=== PATIENT | female | born 1990 | race Caucasian/White ===

== ENCOUNTER 2025-05-18 12:49 | Outpatient (CLI) | payer BC, SELFPAY ==
--- NOTE | 2025-05-18 13:00 | CRLHL7_ITS ---
For Patients: As a result of the Century Cures Act, medical imaging exams and procedure reports are released immediately into your electronic medical record. You may view this report before your referring provider. If you have questions, please contact your health care provider. OBSTETRICAL ULTRASOUND TRANSVAGINAL CLINICAL INDICATION: Dating and viability. LMP: 03/20/2025 LAWRENCE by LMP: 12/25/2025 Gestational age: 8 weeks 3 days PREVIOUS ULTRASOUND: No TECHNIQUE: Real-time cabrera-scale imaging of the fetus was performed transvaginal. Transvaginal imaging was performed for better visualization of the endometrium and ovaries. FINDINGS: CRL: 0.3 cm, 5 weeks 6 days; LAWRENCE 01/12/2026 heart rate: Not visualized Gestational sac: 2.3 cm Yolk sac: 4.1 mm, appears within normal limits Right ovary: Within normal limits; 2.9 x 1.8 x 2.0 cm, CL Left ovary: Not visualized IMPRESSION: 1. Intrauterine gestational sac contains a pole which measures 2.9 mm, 5 weeks 6 days. 2. No heart tones. Follow-up in 11-14 days recommended. JOHNNY CASTILLO M.D. Diagnostic Radiologist [email or web address] Transcribed: 3:[address]/Dictated by: Johnny Castillo MD @ 05/18/2025 2:22:00 PM (Electronically Signed)
== END 2025-05-18 12:50 | disposition home or self-care (01) ==
LOC: US 12:51
PROVIDERS: Visit Provider Advanced Practice Midwife
DX: O35.BXX0 Maternal care for other (suspected) fetal abnormality and damage, fetal cardiac anomalies, not applicable or unspecified (principal); Z3A.01 Less than 8 weeks gestation of pregnancy
CPT/HCPCS: 76817

== ENCOUNTER 2025-05-28 12:15 | Outpatient (CLI) | payer BC, SELFPAY ==
--- NOTE | 2025-05-28 12:15 | CRLHL7_ITS ---
For Patients: As a result of the Century Cures Act, medical imaging exams and procedure reports are released immediately into your electronic medical record. You may view this report before your referring provider. If you have questions, please contact your health care provider. INDICATION: Viability follow-up. TECHNIQUE: Ultrasound OB pelvis transvaginal for better assessment or to better visualize the endometrium. COMPARISON: 05/18/2025. FINDINGS: Intrauterine pole with crown-rump length of 3 mm corresponding to 6 weeks 0 days, not significantly changed. The yolk sac has decreased in size and become more echogenic. No heart tones demonstrated. Subchorionic hemorrhage is now present cephalad to the gestational sac measuring up to 3 cm. Right ovary is 3.5 x 2.3 x 2.4 cm and is within normal limits. Normal-appearing color flow in the right ovary. Right adnexal region unremarkable. Left ovary is not discretely identified. Left adnexal region is unremarkable. No pelvic free fluid. IMPRESSION: 1. demise. 2. Subchorionic hemorrhage measures up to 3 cm. Dictated by Alfonso Preciado MD @ 05/28/2025 2:36:27 PM Dictated by: Alfonso Preciado MD @ 05/28/2025 14:36:37 (Electronically Signed)
== END 2025-05-28 12:16 | disposition home or self-care (01) ==
LOC: US 12:16
PROVIDERS: Visit Provider Advanced Practice Midwife
DX: O36.80X0 Pregnancy with inconclusive fetal viability, not applicable or unspecified (principal)
CPT/HCPCS: 76817; 84702; 86850; J2791

== ENCOUNTER 2025-05-31 13:36 | Outpatient (CLI) | payer BC, SELFPAY ==
--- NOTE | 2025-05-31 13:45 | CRLHL7_ITS ---
For Patients: As a result of the Cures Act, medical imaging exams and procedure reports are released immediately into your electronic medical record. You may view this report before your referring provider. If you have questions, please contact your health care provider. OB ULTRASOUND INDICATION: Bleeding in early . TECHNIQUE: Real time grayscale imaging of the fetus was performed. Transvaginal. Transvaginal imaging performed to better demonstrate the endometrium and ovaries. LAWRENCE by 1st US: 01/12/2026. GA: 7 w, 5 d. Previous US: LAWRENCE by 05/18/2025 US: 01/12/2026. GA: 5 w, 6 d. Previous US: Yes 05/28/2025. LAWRENCE by US: 01/21/2026. GA: 6 w, 0 d. CRL: --- FHR: --- Gestational sac: --- Yolk sac: --- Right ovary: 3.0 x 1.4 x 1.8 cm. Left ovary: 3.4 x 1.5 x 1.7 cm. IMPRESSION: Previously noted intrauterine gestational sac is no longer present. The endometrium is diffusely thickened and heterogeneous measuring up to 2.4 cm. Ovaries are normal. Slight vascularity of the endometrium is present which could suggest retained products. Follow-up recommended. Johnny Hinojosa M.D. Diagnostic Radiologist [email or web address] MARK/checo kessler/Dictated by: Johnny Hinoojsa MD @ 05/31/2025 3:47:00 PM (Electronically Signed)
== END 2025-05-31 13:37 | disposition home or self-care (01) ==
LOC: US 13:37
PROVIDERS: Visit Provider Advanced Practice Midwife
DX: O20.9 Hemorrhage in early pregnancy, unspecified (principal); O36.80X0 Pregnancy with inconclusive fetal viability, not applicable or unspecified
CPT/HCPCS: 76817

== ENCOUNTER 2025-06-08 10:26 | Outpatient (CLI) | payer BC, SELFPAY ==
--- NOTE | 2025-06-08 10:45 | CRLHL7_ITS ---
For Patients: As a result of the Century Cures Act, medical imaging exams and procedure reports are released immediately into your electronic medical record. You may view this report before your referring provider. If you have questions, please contact your health care provider. CLINICAL HISTORY: missed COMPARISON: 05/31/2025 TECHNIQUE: 2D cabrera-scale and color Doppler images were acquired of the pelvis using a transvaginal approach. FINDINGS: On transvaginal imaging, the myometrium has a normal uniform echotexture. The uterus measures 9.6 x 5.5 x 8.3 cm. The endometrial lining is heterogeneous and measures 29.5 millimeters. The left ovary measures 2.1 x 1.5 x 1.2 cm in size and the right ovary measures 2.7 x 1.6 x 2.3 cm. The ovaries demonstrate normal arterial and venous blood flow on color Doppler analysis. There are no suspicious fluid collections within the cul-de-sac. IMPRESSION: Similar appearance of the endometrium with marked heterogeneity and thickening measuring up to 29.5 millimeters. Some associated color flow is present in the fundal region. Dictated by Johnny Hinojosa MD @ 06/11/2025 5:49:28 AM (Electronically Signed)
== END 2025-06-08 10:27 | disposition home or self-care (01) ==
LOC: US 10:27
PROVIDERS: Visit Provider Midwife
DX: O02.1 Missed abortion (principal); R93.89 Abnormal findings on diagnostic imaging of other specified body structures
CPT/HCPCS: 76817; 84702

== ENCOUNTER 2025-07-11 20:48 | Emergency (ER) | payer BC, SELFPAY ==
--- OUTSIDE RECORDS SUMMARY | 2025-07-11 20:50 | XMS_ITS | Clinical Summary ---
Author Organization [facility] Address [address] [place] [address] Care Team Providers Care Muffler Tender Name Role Phone Kathy Gil MD Primary Care Provider [phone] Source Comments You are receiving this document as you are listed as the primary care provider,follow-up provider, or the patient has been referred to you for consultation.This is in compliance with the Medicare andMedicaid EHR Incentive Program,which states Providers who transition their patient to another setting of careor provider of care or refers their patient to another provider of care shouldprovide summary care record for each transition of care or referral. [facility] Allergies No known active allergies Medications MedicationSigDispense QuantityRefillsLast FilledStart DateEnd DateStatus MV-Min-Fe Fum-FA-DHA ( 1 OR) Active norethindrone-ethinyl estradiol (LOESTRIN) 1.5-30 MG-MCG tablet Take 1 Tablet by mouth daily. 63 Tablet 5046Active Active Problems ProblemNoted DateDiagnosed XyrsSqcmswx57/14/2022ecurrent major depressive /14/2022 Resolved Problems ProblemNoted DateDiagnosed DateResolved DateSupervision of other normal , uhxkwmwxpy28/27/202304/03/2025History of abnormality in previous , currently lesrczdb23/03/2025Pregnancy with poor obstetric cmobjlb93/bnormal tusswobwlm41/14/2022 10/23/2021 Overview (07/25/2021): Added automatically from request for surgery [id number] Retained ceisfubg73/ Overview (07/25/2021): Added automatically from request for surgery [id number] complicated by multiple congenital ompbelmhx29/ Thorne-Meirir ctvtindoh99 Overview (10/22/2021): 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 Encounter for planned induction of labor/upervision of normal frkmohtui61/upervision of normal pziqlsnhv25/21/2019 11/03/2018Rh negative status during dopwtmsrx39Supervision of other normal , ukntwvqyim11Rh negative status during in third trimester, tsqzsxlmeu28 Overview (10/12/2016): Rhogam 08/20/16 Encounter for supervision of normal first in third mfptvgpiz27/03/2016 01/05/2017 Immunizations ImmunizationAdministration DatesNext DueInfluenza IIV4 (Quadrivalent) 0.5mL (29878)07/03/2021,03/28/2019,04/13/2016MMR11/23/2016Pfizer Monovalent 12+ Purple Top11/18/2020,1Rho(D) - IG, IM01/21/2023,07/25/2021,10/21/2018, 11/22/2016,08/20/2016Tdap10/21/2018,08/20/2016 Family History Medical HistoryRelationNameCommentsOtherBirth FatherPatient has no contact with FatherCancer, BreastMaternal GrandmotherRelationNameStatusCommentsBirth Father AliveBirth MotherAliveBrotherAliveMaternal GrandfatherDeceasedMaternal GrandmotherDeceased Social History Tobacco UseTypesPacks/DayYears UsedDateSmoking Tobacco: NeverSmokeless Tobacco: Never Tobacco Cessation:Counseling Given: Not Answered Alcohol UseStandard Drinks/WeekCommentsNot Currently0 (1 standard drink = 0.6 oz pure alcohol)1-2 drinks per monthPHQ-2AnswerDate RecordedPHQ-2 Cbule063 DepressionAnswerDate RecordedLast EPDS Total Exyoa377Last EPDS Self Harm ResultNot on file08/14/2024CommentsNoSex and Gender InformationValueDate RecordedSex Assigned at BirthNot on fileLegal SexFemale 10/27/2014 6:12 AM CDTGender IdentityNot on fileSexual OrientationNot on file OccupationIndustryJob Start DateJob End Datecase managerNot on fileNot on file Not on file Last Filed Vital Signs Vital SignReadingTime TakenCommentsBlood Esohxlcf339/67004/07/2023 9:16 AM CDT Jsxbs39380/27/2023 9:16 AM TXBFbriknkuzuy61.4 ??C (97.5 ??F)07/26/2021 8:24 AM CSTRespiratory Ujnv820907/26/2021 8:24 AM CSTOxygen Pthpriltng24%07/25/2021 7:15 PM CSTInhaled Oxygen Concentration--Bsdhcy44.1 kg (192 lb)04/07/2023 9:16 AM CDT Dubcni956.3 cm (5' 3.5)09/07/2022 3:19 PM CSTBody Mass Index33.48009/07/2022 3:19 PM EVENT MARKETING MANAGER Plan of Treatment Health MaintenanceDue DateLast DoneCommentsHepB Vaccine (1)2009dult Preventive VisitCOVID-19 Vaccine (3 - season) /04/2021, 10/23/2020Influenza Vaccine (#1)/, 03/28/2019, 04/13/2016Cervical Cancer Acfdmjzwj11, 09/04/2021, 06/07/2018, Additional history existsDTaP/Tdap/Td Vaccine (3 - Tdap)10/21/2028 10/21/2018, 08/20/2016Zoster/Shingles Vaccine (1 of 2)2040HIV Screening (Preventive Services)Upvifvflk25/27/2023, 05/12/2021, 06/07/2018, Additional history existsHep C Screening (Preventive Services)Ejvkksars13/27/2023, 05/12/2021HPV Vaccine (No Doses Required)CompletedHepA VaccineAged OutNo longer eligible based on patient's age to complete this topicHib VaccineAged OutNo longer eligible based on patient's age to complete this topicIPV (Polio) Vaccine Aged OutNo longer eligible based on patient's age to complete this topicMCV4 VaccineAged OutNo longer eligible based on patient's age to complete this topic Meningococcal B VaccineAged OutNo longer eligible based on patient's age to complete this topicPneumococcal VaccineAged OutNo longer eligible based on patient's age to complete this topic Procedures Procedure NamePriorityDate/TimeAssociated DiagnosisCommentsHIV 1/2 AG/AB 4TH GEN Srlhnlb3609/07/2022 4:20 PM EVENT MARKETING MANAGER Supervision of other normal , antepartum HEPATITIS C ANTIBODY, WITH REFLEX (ANTI-HCV)Uehrjtt1509/07/2022 4:20 PM EVENT MARKETING MANAGER Supervision of other normal , antepartum HPV WITH 16 18 GENOTYPING, CERVICAL/YKEGXIAUHQRPSqkxcmv50/24/2022 8:40 AM EVENT MARKETING MANAGER Cervical cancer screening from Last 3 Months or Most Recently Relevant to Health Maintenance Results * HIV 1/2 Ag/Ab 4th Generation (09/07/2022 4:20 PM EVENT MARKETING MANAGER)ComponentValueRef Range Test MethodAnalysis TimePerformed AtPathologist SignatureHIV 1/2 Antigen/Antibody (4th generation)Negative (Non Reactive)Negative (Non Reactive)09/07/2022 10:01 PM CSTMETHODIST LABORATORYComment:HIV-1 p24 Antigen and HIV-1/HIV-2 Antibody not detectedSpecimen (Source)Anatomical Location / LateralityCollection Method / VolumeCollection TimeReceived TimeBlood Venipuncture / Xilbfvv0609/07/2022 4:20 PM CST09/07/2022 4:20 PM EVENT MARKETING MANAGER Narrative Authorizing ProviderResult TypeResult StatusDapili Srivastava MDLAB_1Final Result Performing OrganizationAddressCity/State/ZIP CodePhone Number [facility] [address] * Hepatitis C Antibody, with Reflex (09/07/2022 4:20 PM EVENT MARKETING MANAGER)ComponentValueRef RangeTest MethodAnalysis TimePerformed AtPathologist SignatureHepatitis C AntibodyNegative (Non Reactive)Negative (Non Reactive)09/07/2022 10:01 PM EVENT MARKETING MANAGER [facility]ORYComment:Antibodies to HCV not detected. Does not exclude the possiblity of exposure to HCV.Specimen (Source)Anatomical Location / LateralityCollection Method / VolumeCollection TimeReceived TimeBlood Venipuncture / Lfledjo0109/07/2022 4:20 PM CST09/07/2022 4:20 PM EVENT MARKETING MANAGER Narrative Authorizing ProviderResult TypeResult StatusDapili Srivastava MDLAB_1Final Result Performing OrganizationAddressCity/State/ZIP CodePhone Number [facility] [address] * HPV with 16 18 Genotyping (09/04/2021 8:40 AM EVENT MARKETING MANAGER)ComponentValueRef RangeTest MethodAnalysis TimePerformed AtPathologist SignatureHPV High Risk Type 16 PCR Not DetectedNot /01/2022 12:27 PM CSTREGIONS [facility]OSPITALHPV High Risk Type 18 PCRNot DetectedNot Cpqbdnaj02/01/2022 12:27 PM CSTREGIONS [facility]OSPITALHPV High Risk Other Than 16/18Not DetectedNot txosabhd56/01/2022 12:27 PM EVENT MARKETING MANAGER [facility]pecimen (Source)Anatomical Location / LateralityCollection Method / VolumeCollection TimeReceived TimeCervical BroomENTIRE ENDOCERVIX / Isaoyar1609/04/2021 8:40 AM CST09/04/2021 12:18 PM EVENT MARKETING MANAGER Narrative [facility] - 09/09/2021 12:27 PM EVENT MARKETING MANAGER The Rachele HPV test is a qualitative in vitro test for the detection of Human Papillomavirus in [facility] patient specimens. The test utilizes amplification of target DNA by Polymerase Chain Reaction (PCR) and nucleic acid hybridization for the detection of 14 high-risk (HR) HPV types. The assay tests for high risk types (16, 18, 31, 33, 35, 39, 45, 51, 52, 56, 58, 59, 66, and 68). Authorizing ProviderResult TypeResult StatusDapili Srivastava MDLAB_1Final Result Performing OrganizationAddressCity/State/ZIP CodePhone Number [address] [address], [facility] [phone] from Last 3 Months or Most Recently Relevant to Health Maintenance [place] [address] Advance Directives * Full Code (Latest Code Status on File) Date ActivatedDate InactivatedComments07/24/2021 9:19 PM07/26/2021 1:17 PM * Full Code Date ActivatedDate InactivatedComments07/24/2021 2:32 PM07/24/2021 4:32 PM Care Teams Team MemberRelationshipSpecialtyStart DateEnd Date Kathy Gil MD [address] [place] [address] PCP - GeneralInternal Medicine01/19/19
--- OUTSIDE RECORDS SUMMARY | 2025-07-11 20:50 | XMS_ITS | Clinical Summary ---
Author Organization [employer] [facility] Address [address] [place] [id number] Care Team Providers Care Carton Forming Machine Tender Name Role Phone Nusrat Srivastava MD Primary Care Provider [phone] Allergies No known active allergies Medications MedicationSigDispense QuantityRefillsLast FilledStart DateEnd DateStatus vitamin-folic acid 1 mg ( VITAMIN WITHOUT CALCIUM #5-IRON-FA) tablet/capsule Indications:pregnancyTake 1 tablet by mouth once daily. Indications: Active Pv w-o Vit A/ferrous fum/folic (, W/O VIT A,-FE FUM-FA ORAL) Take 1 Tab by mouth once daily.Active ibuprofen (MOTRIN IB) 200 mg tablet Indications: (spontaneous vaginal delivery) (HC)Take 1-3 tablets by mouth every 6 hours if needed for Other (Specify) (for uterine cramping). Take with food. 100 tablet 01/19/2019Active acetaminophen (TYLENOL) 325 mg tablet Indications: (spontaneous vaginal delivery) (HC)Take 1-2 tablets by mouth every 4 hours if needed (mild pain). Max acetaminophen dose: 4000mg in 24hrs. 100 tablet 01/19/2019Active docusate (COLACE) 100 mg capsule Indications: care following vaginal delivery (HC)Take 1 Capsule (100 mg) by mouth once daily. 100 Capsule 04/14/2023ctive Active Problems ProblemNoted DateDiagnosed DateSupervision of other normal , antepartum 04/13/2023History of abnormality in previous , currently 3Prior poor obstetrical history, uoiihvukxd16/03/8845Adnvbeu52/03/2023 History of depression, currently vimdwkvn28/03/2023Rh negative state in antepartum kejaup1904/13/2023nemia affecting in third trimester 04/13/2023ostpartum care following vaginal ubrpvzqw84/03/2023ostpartum care and examination of lactating oqmtsn4704/13/2023 Resolved Problems ProblemNoted DateDiagnosed DateResolved DateProlonged second stage01/18/2019 04/13/2023SVD (spontaneous vaginal delivery) Overview (01/18/2019): Oracio Occiput posterior presentation of fetus Overview (01/18/2019): ROP. Rotated to ERICA History of depression, currently in third trimester Overview (01/17/2019): Plans to start Zoloft , has prescription Rh negative status during uictgqzil51Supervision of other normal , pbfzymdxvn87 Family History Medical HistoryRelationNameCommentsCancer-breastMaternal GrandmotherRelationName StatusCommentsMaternal Grandmother Social History Tobacco UseTypesPacks/DayYears UsedDateSmoking Tobacco: NeverSmokeless Tobacco: NeverAlcohol UseStandard Drinks/WeekCommentsNot Currently0 (1 standard drink = 0.6 oz pure alcohol)Social ConnectionsAnswerDate RecordedFrequency of Communication with Friends and Dqxnie490Financial Resource StrainAnswer Date RecordedDifficulty of Paying Living Keiesxct274ifficulty of Paying Living ExpensesNot on file04/13/2023Food InsecurityAnswerDate RecordedWorried About Running Out of Food in the Last Jgho336Transportation NeedsAnswer Date RecordedLack of Transportation (Medical)Housing StabilityAnswer Date RecordedUnable to Pay for Housing in the Last Ohss523regnant CommentsNoSex and Gender InformationValueDate RecordedSex Assigned at BirthNot on fileLegal NpfHjpbkh30/15/2016 5:30 PM CSTGender IdentityNot on fileSexual OrientationNot on fileOccupationIndustryJob Start DateJob End [id number] on fileNot on fileNot on file Obstetrics History GravidaParaTermPretermABIABSABEctopicMultipleLivingLive Mrtfeg0867730UiihIqvbhhx GATotal LaborLabor/2nd/7irJrqaktLxiOpyuCrupGJUWuyK5X6VkbrSjjn51/13/6589Syqd17r1s 3.37 kg (7 lb 7 oz)FVag-SpontEpidural,EpiduralNLivingCharclaudiae MaeDr. Cardenas Complications:NoneDelivery Location[facility]01/18/20199202Umsa08u6k 0h 03m3.38 kg (7 lb 7.2 oz)MVag-VxzlyGcbuafloLYiubcy48FYZMGB,BB CAITLINThomas Delivery Location:[facility]) 7444Hntisbb56j5m47j 00m5h 24m/0h 28m/9h 08m0.26 kg (9.1 oz)MVag-SpontNoneN Sskqog70GlagCheWyatt Knowles MDComplications:NoneLiving Status Comments: Multiple anomaliesDelivery [facility] ( [facility]) Comments:Owen04/13/20239937Phzq57l2n0l 35m7h 20m/0h 11m/0h 04m3.19 kg (7 lb 0.5 oz)FVAGINAL TZBAVfajEupkvn54DXWLVB,Nusrat Cortes MD Complications:NoneDelivery Location:Hospital ([facility]) Last Filed Vital Signs Vital SignReadingTime TakenCommentsBlood Ctnhnvnl206/7610 8:28 AM CDT Qtkko730904/14/2023 8:28 AM XSGBewnnvjzjdt35.4 ??C (97.5 ??F)04/14/2023 8:28 AM CDTRespiratory Mhsx3238 8:28 AM CDTOxygen Ouzbvsxlsv43%04/14/2023 8:28 AM CDTInhaled Oxygen Concentration--Dnztmp11.1 kg (192 lb 0.3 oz)04/13/2023 7:43 AM SKUWjvyco699.3 cm (5' 3.5)04/13/2023 7:43 AM CDTBody Mass Index33.48 04/13/2023 7:43 AM CDT Plan of Treatment Health MaintenanceDue DateLast DoneCommentsTetanus qvbebcg9404/23/2001Depression screening for age 12+2002HIV for age 15-6504/23/2005Hepatitis C screening for age 18-7904/23/2008Hepatitis B series for 19+ (1 of 3 - 19+ 3-dose series) 2009Pap test for age 21-6504/23/2011HPV series for age 9-45 (1 - 3-dose SCDM series)2017BMI (ht and wt on same day) for age 18+10/28/2017 10/28/2016COVID-19 vaccine series (2024- season)505/04/2021, 10/23/2020Influenza Vaccine (#1)2025Pneumococcal series for age 6-49Aged OutNo longer eligible based on patient's age to complete this topic Insurance * Guarantor: Heidi Howell TypeRelation to PatientDate of BirthPhone Billing AddressPersonal/CxjpkbTdda1990 [address] [facility] [place] [address] [place] [address] Advance Directives * Full Code (Latest Code Status on File) Date ActivatedDate BpbvescngsyOwxenzru65/3/2023 7:40 AM04/14/2023 7:43 PMQuestion AnswerCommentsCode Status Discussion:* Reviewed Preferences * Full Code Date ActivatedDate InactivatedComments01/18/2019 4:12 AM01/19/2019 12:39 PM * Full Code Date ActivatedDate InactivatedComments11/13/2016 10:05 AM11/13/2016 2:01 PM Care Teams Team MemberRelationshipSpecialtyStart DateEnd Date Nusrat Srivastava MD [address] [place] [address] PCP - GeneralObstetrics and Gynecology10/23/21
[2025-07-11 20:51] VITALS: BP 136/87; PULSE 95; RESP 18; TEMP 36.4; O2SAT 100; BMI 31.7
--- NOTE | 2025-07-11 22:23 | ED.GENADULT ---
HPI - General Adult General Chief complaint: Unspecified Complaint, Adult Stated complaint: bleeding, miscarriage 5 wks ago Time Seen by Provider: 07/11/25 21:32 History of Present Illness HPI narrative: This 35-year-old female comes in reporting vaginal bleeding with some cramping. She had a miscarriage about 6 weeks ago and began to have a menses 3 or 4 days ago. This appeared to be somewhat normal 1st menses after her miscarriage but today she had extra a large amount of bleeding. She does not have any fevers or significant pain. She does have some typical cramps with menses. She arrives here with normal vital signs. Related Data Home Medications ?Medication ?Instructions ?Recorded ?Confirmed docosahexaenoic acid 200 mg mg PO 05/28/25 06/08/25 capsule ( DHA) Previous Rx's ?Medication ?Instructions ?Recorded misoprostol 200 mcg tablet 800 mcg (4 x 200 mcg) sublingual 05/31/25 ONCE #4 tabs Allergies Allergy/AdvReac Type Severity Reaction Status Date / Time No Known Drug Allergies Allergy Verified 06/08/25 11:12 Review of Systems Status of ROS: Reports: 10 or more systems reviewed and unremarkable except as noted in History and below Narrative: Constitutional: No fevers, no weight gain or loss. Eyes: No discharge. No vision changes. HENT: No congestion, no sore throat, no ear pain. Cardiovascular: No chest pain, no palpitations. Respiratory: No shortness of breath, no wheezes, no cough. Gastrointestinal: No vomiting, no diarrhea. Genitourinary: No dysuria, no hematuria. Musculoskeletal: Normal range of motion. Skin: No rashes, no pruritis. Neurological: No dizziness, weakness, sensory change, speech change. Endo/Heme/Allergies: No bruising or bleeding. No polydipsia. Pysch: no suicidality, no anxiety, no insomnia. All other systems reviewed and are negative. Exam Narrative: Exam Narrative: Constitutional: Well-developed, well-nourished, no acute distress. HEENT: Normocephalic, atraumatic. Neck: Normal range of motion. Nontender. Supple. Heart: Intact distal pulses. Lungs: No chest discomfort. No wheezes, rhonchi, or rales. Abdomen: Nontender. Back: Normal range of motion. Extremities: Normal range of motion. No injury. Skin: Intact. No rash. Warm. No erythema or pallor. Neurologic: No altered sensation. No weakness. Alert and oriented. Psychiatric: No suicidality. No anxiety or depression. No insomnia. Nursing notes and vitals signs are reviewed. Const: Vital Signs, click to edit/add: Vital Signs - 24 hr 07/11/25 20:51 Temperature 97.5 F L Pulse Rate [Left P ulse Oximeter] 95 Respiratory Rate 18 Blood Pressure [Ri ght Upper Arm] 136/87 Pulse Oximetry 100 Oxygen Delivery Me thod Room Air Course Vital Signs Vital signs: Initial Vital Signs Temperature 97.5 F L 07/11/25 20:51 Temperature Source Temporal Artery Scan 07/11/25 20:51 Pulse Rate 95 07/11/25 20:51 Pulse Rhythm Regular 07/11/25 20:51 Respiratory Rate 18 07/11/25 20:51 Blood Pressure 136/87 07/11/25 20:51 Blood Pressure Mean 103 07/11/25 20:51 Blood Pressure Position Sitting 07/11/25 20:51 Pulse Oximetry 100 07/11/25 20:51 Oxygen Delivery Method Room Air 07/11/25 20:51 Vital Signs Temperature 97.5 F L 07/11/25 20:51 Pulse Rate 95 07/11/25 20:51 Respiratory Rate 18 07/11/25 20:51 Blood Pressure 136/87 07/11/25 20:51 Pulse Oximetry 100 07/11/25 20:51 Oxygen Delivery Method Room Air 07/11/25 20:51 Temperature 97.5 F L 07/11/25 20:51 Pulse Rate 95 07/11/25 20:51 Respiratory Rate 18 07/11/25 20:51 Blood Pressure 136/87 07/11/25 20:51 Pulse Oximetry 100 07/11/25 20:51 Oxygen Delivery Method Room Air 07/11/25 20:51 Medical Decision Making MDM Narrative Medical decision making narrative: This patient had extra amount of bleeding as she was wearing a cup. This occurred a couple hours prior to arrival here. She checked again and now there is much less bleeding. It seems that her experience over these few days is a menses which can be atypical after a miscarriage. I did contact Dr. Tony who agreed with this assessment and stated that it is reasonable to watch and if worsening symptoms occur follow up in clinic or return to emergency department. Discharge Plan Discharge Clinical Impression: Excessive menses Patient Disposition: Home, Self-Care Condition: Stable Additional Instructions: continue current plans. Follow up with MD if worsening or persistent symptoms happen. Prescriptions: No Action misoprostol 200 mcg tablet 800 mcg sublingual ONCE Qty: 4 0RF DHA 200 mg capsule PO Follow Up/Referrals: Provider,Not a Local [Primary Care Provider, Family Practice] Stand Alone Forms: [employer] Info Instructions
== END 2025-07-11 22:34 | disposition home or self-care (01) ==
LOC: ED 22:26
PROVIDERS: Emergency Provider Emergency Medicine Emergency Medical Services
DX: N92.0 Excessive and frequent menstruation with regular cycle (principal)
CPT/HCPCS: 99281; 99283; 99284